=== PATIENT | male | born 1975 | race Caucasian/White ===

== ENCOUNTER 2022-10-18 12:49 | Outpatient (CLI) | payer BC | END 2022-10-18 12:50 | disposition home or self-care (01) | LOC: CSHMRI 12:49 | PROVIDERS: ATTEND Nurse Practitioner Family | DX: S32.050D Wedge compression fracture of fifth lumbar vertebra, subsequent encounter for fracture with routine healing (principal); M47.816 Spondylosis without myelopathy or radiculopathy, lumbar region; M48.061 Spinal stenosis, lumbar region without neurogenic claudication; S32.050K Wedge compression fracture of fifth lumbar vertebra, subsequent encounter for fracture with nonunion | CPT/HCPCS: 72148 ==